=== PATIENT | male | born 1950 | race Caucasian/White ===

== ENCOUNTER 2024-01-30 08:45 | Emergency (ER) | payer MEDICARE, SELFPAY ==
[2024-01-30 09:01] VITALS: BP 134/52; PULSE 50; RESP 16; TEMP 36.6; O2SAT 98
--- NOTE | 2024-01-30 09:13 | ED.URI ---
HPI - URI/Sore Throat General Chief Complaint: Upper Respiratory Infection Stated Complaint: Strep Symptoms Time Seen by Provider: 01/30/24 09:24 Source: patient and RN notes reviewed Mode of arrival: ambulatory Limitations: no limitations History of Present Illness HPI Narrative: 73-year-old male presents with concern for exposure to strep throat earlier this week, he has then been having general malaise, nausea, vomiting, headache, body aches, chills, sweats. Reports his granddaughter had strep throat with similar symptoms. He has not taken any medications for his symptoms. MD elicited complaint: fever and other (Headache, nausea vomiting) Related Data Home Medications Medication Instructions Recorded Confirmed coenzyme Q10 75 mg capsule (Ultra 75 mg PO DAILY 02/09/23 01/30/24 CoQ10) Allergies Allergy/AdvReac Type Severity Reaction Status Date / Time amoxicillin [From Augmentin] AdvReac Intermediate Nausea and Verified 01/30/24 08:52 Vomiting clavulanic acid AdvReac Intermediate Nausea and Verified 01/30/24 08:52 Vomiting rosuvastatin [From Crestor] AdvReac Intermediate elevated CK Verified 01/30/24 08:52 cefuroxime AdvReac Mild flushing Verified 01/30/24 08:52 and redness pitavastatin sodium AdvReac Mild Nausea and Verified 01/30/24 08:52 Vomiting Review of Systems Review of Systems: CONSTITUTIONAL: Reports malaise, chills, sweats, or fever. EYES: Denies visual changes, redness, or discharge. ENT: Denies rhinorrhea, congestion, sinus pain, otalgia and sore throat. CARDIOVASCULAR: Denies chest pain, palpitations, or edema. RESPIRATORY: Denies cough. Denies dyspnea. GASTROINTESTINAL: Denies abdominal pain. Reports nausea, vomiting, diarrhea SKIN: Denies rash or itching. MUSCULOSKELETAL: Reports myalgia. NEUROLOGIC: Reports headache. All systems reviewed & are unremarkable except as noted in HPI and below PMFSH Past Medical History Medical History Adenocarcinoma of prostate Adverse effect of HMG-CoA reductase inhibitor BMI 29.0-29.9,adult BMI 30.0-30.9,adult BMI 31.0-31.9,adult Degenerative arthritis of knee, bilateral Dupuytren contracture Elevated creatine kinase Elevated prostate specific antigen (PSA) Essential (primary) hypertension GERD without esophagitis Hip pain Hypertension Left hip pain Mixed hyperlipidemia Posterior right knee pain Surgical History Surgical History Hx of biopsy Family History Family History Mother Family history of diabetes mellitus in first degree relative Father Family history of lung cancer Sibling Family history of malignant neoplasm of breast in first degree relative Malignant neoplasm of prostate Breast cancer Thyroid activity decreased Social History Social History Smoking status: Never smoker Second hand tobacco smoke exposure: No Alcohol intake: current Drinks per week: 1 Substance use: never Substance use type: does not use Do You Feel Safe in your Home?: Yes Lack of Transportation: No Lack of Food: Never True Current Housing: I Have Housing Concerned About Future Housing: No Difficulty Paying Gas/Electric Bills: No Difficulty Paying for Meds: No Currently Unemployed: No Education: Master's Degree or Higher Difficulty w/ Childcare or Family Care: No Living arrangements: with family Occupation/Education: occupation 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
== END 2024-01-30 09:36 | disposition home or self-care (01) ==
PROVIDERS: Emergency Provider Nurse Practitioner; PCP Family Medicine
DX: R11.2 Nausea with vomiting, unspecified (principal); Z20.818 Contact with and (suspected) exposure to other bacterial communicable diseases; Z20.822 Contact with and (suspected) exposure to COVID-19; M17.0 Bilateral primary osteoarthritis of knee; I10 Essential (primary) hypertension; K21.9 Gastro-esophageal reflux disease without esophagitis; E78.2 Mixed hyperlipidemia; Z85.46 Personal history of malignant neoplasm of prostate
CPT/HCPCS: 87081; 87426; 87804; 87880; 99213; G0463

== ENCOUNTER 2024-02-01 00:19 | Inpatient (IN) | payer MEDICARE, SELFPAY ==
[2024-02-01] VITALS (7 sets, daily range): BP systolic 141–169; BP diastolic 70–86; PULSE 50–83; RESP 16–18; TEMP 36.3–36.6; O2SAT 96–100; BMI 29.3
--- NOTE | ~2024-02-01 | XR_ITS ---
Upright portable view of the abdomen Clinical history: NG tube placement Findings: NG tube probably coiled back upon itself at the distal esophagus. Probable dilated small cielo wel loops noted in the upper abdomen. No free air evident. No abnormal mass lesion or calcification i s seen. Osseous structures are intact. Impression: Malpositioned NG tube, which is probably curled back upon itself at the distal esophagus. Removal/rep ositioning is required. Probable small bowel obstruction. Reviewed, dictated and finalized at location . Impression: Malpositioned NG tube, which is probably curled back upon itself at the distal esophagus. Removal/repositioning is required. Probable small bowel obstruction.
--- NOTE | ~2024-02-01 | CT_ITS ---
CT of the Abdomen and Pelvis: Indication: Abdominal pain Technique: 2.5 mm axial scans were obtained through the abdomen and pelvis following intravenous adm inistration of 100 cc of Omnipaque 350. Dose reduction technique was used on this scan by utilizing a utomated exposure control and iterative reconstruction technique. The dose-length product (DLP) was 7 38.44 mGy-cm. Findings: Scans through the lung bases demonstrate minimal bilateral pleural effusions. The liver, spleen, pancreas, adrenals and kidneys are within normal limits. Cholecystectomy clips are present. No evidence of aortic aneurysm. No lymphadenopathy. Multiple dilated proximal small bowel loops are present. Distal small bowel loops are relatively deco mpressed. Findings suggest at least partial small bowel obstruction. Images through the pelvis were performed. Urinary bladder unremarkable. Prostate gland enlarged. Smal l fat-containing inguinal hernia present. Trace pelvic ascites present. Impression: Findings most consistent with small bowel obstruction, as detailed above. Minimal pleural effusions and trace pelvic ascites. Enlarged prostate gland. Reviewed, dictated and finalized at location . Impression: Findings most consistent with small bowel obstruction, as detailed above. Minimal pleural effusions and trace pelvic ascites. Enlarged prostate gland.
--- NOTE | ~2024-02-01 | XR_ITS ---
EXAMINATION: XR sm bowel follow through DATE: 02/01/2024 11:16 INDICATION: Small bowel obstruction. TECHNIQUE: Oral contrast was administered, and a time course of radiographs of the abdomen was obtain ed. Fluoroscopy of the small bowel was at performed. Fluoroscopy exposure time was 0 minutes. The tot al number of images was 10. COMPARISON: CT abdomen and pelvis 02/01/2024 FINDINGS: Surgical clips in the right upper quadrant are likely from cholecystectomy. The nasogastric tube tip is in the stomach. There are multiple dilated loops of small bowel. Transit time from the stomach to proximal colon was approximately 2 hours. IMPRESSION: 1. Dilated small bowel with normal transit time to the colon, consistent with adynamic ileus versus p artial small bowel obstruction. Reviewed, dictated and finalized at location A. IMPRESSION: 1. Dilated small bowel with normal transit time to the colon, consistent with a dynamic ileus versus partial small bowel obstruction.
--- NOTE | ~2024-02-01 | XR_ITS ---
Clinical Indication: Body aches PA and lateral views of the chest: Comparison: 10/28/2012 Findings: Calcified right lower lobe granuloma present. The lungs are otherwise clear, without eviden ce of focal consolidation or pleural effusion. Cardiomediastinal silhouette is within normal limits. Bones and soft tissues are unremarkable. Impression: No significant abnormality. Reviewed, dictated and finalized at location . Impression: No significant abnormality.
--- NOTE | ~2024-02-01 | XR_ITS ---
Upright portable view of the abdomen Clinical history: NG tube placement Findings: NG tube is in satisfactory position. There is small bowel loops are compatible with small b owel obstruction. No free air seen. No abnormal mass lesion or calcification is seen. Osseous structu res are intact. Impression: NG tube in satisfactory position. Small bowel obstruction. Reviewed, dictated and finalized at location . Impression: NG tube in satisfactory position. Small bowel obstruction.
--- NOTE | 2024-02-01 00:52 | PC.NURSE ---
Pt unable to urinate at this time.
--- NOTE | 2024-02-01 01:39 | ED.ABDPAIN ---
HPI - Abdominal Pain General Chief Complaint: Abdominal Pain <KATYA Piedra Last Filed: 02/01/24 01:56> Stated Complaint: abd pain <KATYA Piedra Last Filed: 02/01/24 01:56> Time Seen by Provider: 02/01/24 01:14 <KATYA Piedra Last Filed: 02/01/24 01:56> History of Present Illness HPI narrative: 73-year-old male with a history of hypertension, hyperlipidemia presents to the emergency department for nausea, body aches, generalized fatigue for 4 days. Patient is reporting an upset stomach and epigastric abdominal pain. States at the onset of symptoms he had nausea and bilious emesis. He went to urgent care yesterday and was prescribed Zofran and penicillin because he was exposed to his granddaughter who was recently diagnosed with strep. The patient is denying a sore throat, chest pain or shortness of breath, cough or congestion, dysuria or hematuria. Prior abdominal surgeries include cholecystectomy. States he has been unable to keep down food and fluids secondary to nausea and emesis. <KATYA Piedra Last Filed: 02/01/24 01:56> Related Data Home Medications: Home Medications Medication Instructions Recorded Confirmed coenzyme Q10 75 mg capsule (Ultra 75 mg PO DAILY 02/09/23 01/30/24 CoQ10) <KATYA Piedra Last Filed: 02/01/24 01:56> Allergies/Adverse Reactions: Allergies Allergy/AdvReac Type Severity Reaction Status Date / Time amoxicillin [From Augmentin] AdvReac Intermediate Nausea and Verified 02/01/24 00:28 Vomiting clavulanic acid AdvReac Intermediate Nausea and Verified 02/01/24 00:28 Vomiting rosuvastatin [From Crestor] AdvReac Intermediate elevated CK Verified 02/01/24 00:28 cefuroxime AdvReac Mild flushing Verified 02/01/24 00:28 and redness pitavastatin sodium AdvReac Mild Nausea and Verified 02/01/24 00:28 Vomiting <KATYA Piedra Last Filed: 02/01/24 01:56> Review of Systems Review of Systems: CONSTITUTIONAL: Denies fever, chills, or sweats. EYES: Denies visual changes, redness, or discharge. ENT: Denies rhinorrhea, congestion, sore throat, or otalgia. CARDIOVASCULAR: Denies chest pain, palpitations, or edema. RESPIRATORY: Denies cough or dyspnea. GASTROINTESTINAL: See HPI GENITOURINARY: Denies dysuria or hematuria. SKIN: Denies rash or itching. MUSCULOSKELETAL: Denies back pain, joint pain, or myalgia. NEUROLOGIC: Denies headache, numbness, or weakness. PSYCHIATRIC: Denies anxiety or depression. <Alisha Case PA-C - Last Filed: 02/01/24 01:56> [facility] Past Medical History Medical History: Medical History Adenocarcinoma of prostate Adverse effect of HMG-CoA reductase inhibitor BMI 29.0-29.9,adult BMI 30.0-30.9,adult BMI 31.0-31.9,adult Degenerative arthritis of knee, bilateral Dupuytren contracture Elevated creatine kinase Elevated prostate specific antigen (PSA) Essential (primary) hypertension GERD without esophagitis Hip pain Hypertension Left hip pain Mixed hyperlipidemia Posterior right knee pain <Alisha Case PA-C - Last Filed: 02/01/24 01:56> Surgical History Surgical History: Surgical History Hx of biopsy <Alisha Case PA-C - Last Filed: 02/01/24 01:56> Family History Family History: Family History Mother Family history of diabetes mellitus in first degree relative Father Family history of lung cancer Sibling Family history of malignant neoplasm of breast in first degree relative Malignant neoplasm of prostate Breast cancer Thyroid activity decreased <Alisha Case PA-C - Last Filed: 02/01/24 01:56> Social History Social History: Social History
--- NOTE | 2024-02-01 01:42 | ECG_ITS ---
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 Measurements Intervals [place] Rate: 70 P: 14 FL: 157 QRS: -14 QRSD: 102 T: 18 QT: 429 QTc: 465 Interpretive Statements SINUS RHYTHM NORMAL ELECTROCARDIOGRAM No previous ECG available for comparison Electronically Signed On 02-01-2024 14:45:51 CDT by Kalpesh Maria M.D.
[2024-02-01] MEDS: SODIUM CHLORIDE 0.9% IV 1,000 ML 999 ML IV CONT ×2 (02:00→03:35)
[2024-02-01 03:00] LABS: Basophils Percent Auto 0.5 % (0.2-1.2); Eosinophils Absolute Auto 0.1 K/mm3 (0-0.3); Eosinophils Percent Auto 1.1 % (0-4.4); Hematocrit 46.9 % (42.0-52.0); Hemoglobin 15.8 g/dL (14.0-18.0); Immature Granulocyte Absolute 0.01 K/mm3 (0.00-0.031); Immature Granulocyte Percent A 0.2 % (0-0.5); Immature Platelet Fraction Pct 4.6 % (0.9-11.2); Lymphocytes Absolute Auto 1.53 K/mm3 (0.9-3.2); Lymphocytes Percent Auto 23.4 % (18.3-44.2); Mean Corpuscular HGB Conc 33.7 g/dl (32-36); Mean Corpuscular Hemoglobin 29.3 pg (26-34); Mean Corpuscular Volume 86.9 fl (80-100); Mean Platelet Volume 10.7 fl (7.4-10.4); Monocytes Absolute Auto 0.8 K/mm3 (0.1-0.6); Monocytes Percent Auto 11.6 % (2.6-8.5); Neutrophils Absolute Auto 4.1 K/mm3 (1.3-6.7); Neutrophils Percent Auto 63.2 % (45.5-73.1); Platelet Count Result 136 k/mm3 (150-375); Red Cell Distribution Width 13.9 % (11.5-14.5); White Blood Count 6.5 K/mm3 (4.5-10.0)
[2024-02-01 03:07] LABS: Lactic Acid Reflex 0.7 mmol/L (0.7-2.0)
[2024-02-01 03:25] LABS: Appearance Urine Clear (Clear); Bacteria Urine None Seen /hpf; Bilirubin Urine Negative (Negative); Blood Urine 1+ (Negative); Color Urine Yellow (Yellow); Glucose Urine UA Negative (Negative); Ketones Urine 1+ mg/dL (Negative); Leukocyte Esterase Ur Negative LEU/UL (Negative); Nitrate Urine Negative (Negative); Protein Urine Trace mg/dL (Negative); RBC Urine 0-2 /hpf (0-2); Specific Grav Ur 1.021 (1.001-1.035); Squamous Epithelial Cell Urine None Seen /hpf (Few); Urobilinogen Urine 0.2 mg/dL (<2.0); WBC Urine 0-5 /hpf (0-3)
[2024-02-01 03:25] LABS: Alanine Aminotransferase 33 U/L (6-50); Albumin Level 4.5 g/dL (3.5-5.1); Alkaline Phosphatase 60 U/L (38-126); Anion Gap 10 mmol/L (4-12); Aspartate Amino Transferase 36 U/L (17-59); Bilirubin,Total 0.8 mg/dL (0.2-1.3); Blood Urea Nitrogen 20 mg/dL (9-20); Calcium 8.8 mg/dL (8.4-10.2); Carbon Dioxide 23 mmol/L (22-30); Chloride 105 mmol/L (98-107); Creatine Kinase 375 U/L (55-170); Estimated CRCL calculation 49 ml/min; Estimated Glomerular Filt Rate 54; Glucose 91 mg/dL (65-110); Lipase 56 U/L (23-300); Potassium 3.9 mmol/L (3.4-5.0); Sodium 138 mmol/L (137-145)
[2024-02-01 03:26] LABS: Add Urine Microscopic? YES
[2024-02-01] MEDS: ONDANSETRON INJ 4 MG/2 ML VIAL (03:35)
[2024-02-01] MEDS: PANTOPRAZOLE SODIUM IV 40 MG VIAL IV PUSH (03:35)
[2024-02-01 03:36] LABS: Troponin I < 0.012 ng/mL (0.000-0.034)
--- NOTE | 2024-02-01 03:36 | PC.NURSE ---
medications administered during downtime.
--- NOTE | 2024-02-01 04:45 | PC.NURSE ---
Assumed care of pt at this time.
[2024-02-01] MEDS: SODIUM CHLORIDE 0.9% IV 1,000 ML 100 ML IV CONT (06:48)
[2024-02-01] MEDS: ERTAPENEM 1 GM/NS 50 ML 1 GM/50 ML BAG IVPB (06:49)
--- NOTE | 2024-02-01 07:29 | ADMGEN ---
This patient, Boom Mckeon, was admitted to 2 Medical Room 240-. Patient/family oriented to hospital policies and general routines including ID bracelet, bed and alarms, visiting hours, pain management, procedures, bathroom and other care routines, personal items, smoking policy, room service/diet, and visiting hours. Information on how to activate the Rapid Response Team has been discussed. Patient/Family are encouraged to report perceived risks to care and to ask questions if they do not understand what they are told or what they should do.
--- NOTE | 2024-02-01 07:57 | PM.IMHP ---
H&P: HPI History of Present Illness Date/Time: 02/01/24 07:57 Chief Complaint: abdominal pain Narrative: 73 yo gentleman with history of hypertension hyperlipidemia, cholecystectomy present ED with chief complaint of abdomen pain, nausea. Patient started have nausea abdomen pain about 4 days ago, patient has epigastric pain, and patient has intermittent nausea bilious vomiting. Patient denies black emesis, black stools. Patient went to urgent care yesterday and prescribed Zofran penicillin. Patient came back ED because of worsening abdomen pain nausea vomiting. Patient denied sore throat, chest pain or shortness of breath, cough or congestion, dysuria or hematuria. upon arrival to ED, patient was afebrile, blood pressure stable, pulse ox 98 on room air, labs are unremarkable, CT abdomen pelvis showed small-bowel obstruction, minimal pleural effusion and trace pelvic ascites, enlarged prostate gland Review of Systems Review of Systems: ROS negative except above PMFSH Past Medical History Medical History Adenocarcinoma of prostate Adverse effect of HMG-CoA reductase inhibitor Degenerative arthritis of knee, bilateral Dupuytren contracture Elevated creatine kinase Elevated prostate specific antigen (PSA) Essential (primary) hypertension GERD without esophagitis Hip pain Hypertension Left hip pain Mixed hyperlipidemia Posterior right knee pain Surgical History Surgical History History of laparoscopic cholecystectomy Hx of biopsy Family History Family History Mother Family history of diabetes mellitus in first degree relative Father Family history of lung cancer Sibling Family history of malignant neoplasm of breast in first degree relative Malignant neoplasm of prostate Breast cancer Thyroid activity decreased Social History Social History Smoking status: Never smoker Second hand tobacco smoke exposure: No Alcohol intake: current Drinks per week: 1 Substance use: never Substance use type: does not use Do You Feel Safe in your Home?: Yes Lack of Transportation: No Lack of Food: Never True Current Housing: I Have Housing Concerned About Future Housing: No Difficulty Paying Gas/Electric Bills: No Difficulty Paying for Meds: No Currently Unemployed: No Education: Master's Degree or Higher Difficulty w/ Childcare or Family Care: No Living arrangements: with family Occupation/Education: occupation 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 Gender identity (if verbalized by the patient): Male Sexual Orientation (if Verbalized by the Patient): Straight or Heterosexual Spiritual care concerns: No Agree to blood products: Yes Meds Home Medications and Allergies Home Medications Medication Instructions Recorded Confirmed Type coenzyme Q10 75 mg capsule (Ultra 75 mg PO DAILY 02/09/23 02/01/24 History CoQ10) doxazosin 4 mg tablet 4 mg PO DAILY #90 tabs 11/11/23 02/01/24 Rx tadalafil 5 mg tablet 5 mg PO DAILY #30 tabs 11/22/23 02/01/24 Rx famotidine 40 mg tablet 40 mg PO QHS #90 tabs 11/29/23 02/01/24 Rx lisinopril 20 mg tablet See Rx Instructions .Route 01/10/24 02/01/24 Rx .COMPLEX #90 tabs ondansetron 4 mg disintegrating 4 mg PO Q8H PRN nausea and 01/30/24 02/01/24 Rx tablet vomiting #10 tabs Allergies Allergy/AdvReac Type Severity Reaction Status Date / Time amoxicillin [From Augmentin] AdvReac Intermediate Nausea and Verified 02/01/24 00:28 Vomiting clavulanic acid AdvReac Intermediate Nausea and Verified 02/01/24 00:28 Vomiting rosuvastatin [From Crestor] AdvReac Intermediate elevated CK Verified 02/01/24 00:28 cefuroxime AdvReac Mild flushing Verified 02/01/24 00:28 and
[2024-02-01] MEDS: DEXTROSE 5%/LACTATED RINGERS 1,000 ML 100 ML IV CONT ×2 (08:22→18:46)
[2024-02-01] MEDS: ENOXAPARIN 40 MG/0.4 ML SYRINGE SUB-Q (08:23)
--- NOTE | 2024-02-01 11:32 | PM.CNGS ---
Assessment and Plan Assessment and plan (1) Small bowel obstruction: Code(s): K56.609 - Unspecified intestinal obstruction, unspecified as to partial versus complete obstruction Status: Acute Assessment and Plan: CT evidence of a small bowel obstruction. WBC and lactic acid are normal. NG tube is now in place after repositioning. His only surgical history is a laparoscopic cholecystectomy, which you would not expect him to have extensive intraabdominal adhesions from this surgery. There are no diffuse peritoneal signs on exam, and he reports having diarrhea since yesterday. His presentation and exam are not consistent with a high-grade small bowel obstruction. We have ordered a water-soluble small bowel follow through to further evaluate. If there is no small bowel obstruction, then we can remove his NG tube and start him on a liquid diet. Will continue to follow. (2) Essential (primary) hypertension: Code(s): I10 - Essential (primary) hypertension Status: Acute (3) Adenocarcinoma of prostate: Code(s): C61 - Malignant neoplasm of prostate Status: Acute Assessment and Plan: Low-grade and under surveillance by Urology. Plan I have discussed the patient's case and plan of care with Dr. Larkin. History of Present Illness Consult details Consult date: 02/01/24 Reason for consult: other (Small bowel obstruction) Requesting physician: Shyann Sanders MD Narrative: This is a 73-year-old man with a history of hypertension, hyperlipidemia, GERD, and prostate cancer under surveillance, who presented to the emergency department with complaints of abdominal pain and vomiting. His only history of abdominal surgery is a laparoscopic cholecystectomy. He reports having generalized malaise, body aches, bloating, and cramping abdominal pain starting 3 days ago after eating pulled pork Sliders for dinner. His symptoms continued into the next day. He reports a sudden onset of nausea with 4 episodes of vomiting within about an hour time frame. Around this time, he also reports having a very large bowel movement. After this, his nausea improved, but he continued to have bloating, abdominal distention, and cramping abdominal pain. Yesterday, his abdominal pain continued to get worse and would come in waves. He had no more vomiting, and reports more than 10 episodes of diarrhea. Throughout the day, he began to notice that his abdomen was tender and he decided to come into the ER for evaluation. Labs showed a normal white blood cell count of 6500. Lactic acid 0.7. CT scan of the abdomen and pelvis showed evidence of a small-bowel obstruction. He was admitted in the setting. Our service was consulted for surgical evaluation of the small-bowel obstruction. NG tube has been placed and is currently clamped for a small-bowel follow-through that was started this morning. He reports having 1 liquid bowel movement earlier this morning. He does report passing flatus and feels there is some liquid stool that passes with flatus. Denies a history of a small-bowel obstruction. He does report over the past month having changes in his bowel habits. He has had intermittent constipation, but denies blood in his stool. He has had multiple colonoscopies last done about 5 years ago that was reportedly unremarkable. Review of Systems Review of Systems: All systems reviewed & are unremarkable except as noted in HPI and below PMFSH Past Medical History Medical History Adenocarcinoma of prostate Adverse effect of HMG-CoA reductase inhibitor Degenerative arthritis of knee, bilateral Dupuytren contracture Elevated creatine kinase Elevated prostate specific antigen (PSA) Essential (primary) hypertension GERD without esophagitis Hip pain Hypertension Left hip pain Mixed hyperlipidemia Posterior right knee pain Surgical History Surgical History (Reviewed 02/01/24 @ 11:39 by
[2024-02-02 04:22] VITALS: BP 146/74; PULSE 63; RESP 18; TEMP 36.4; O2SAT 99
[2024-02-02] MEDS: DEXTROSE 5%/LACTATED RINGERS 1,000 ML 100 ML IV CONT (04:45)
[2024-02-02] MEDS: ERTAPENEM 1 GM/NS 50 ML 1 GM/50 ML BAG IVPB (05:00)
--- NOTE | 2024-02-02 07:45 | PM.IMPN ---
Progress Note: A&P Assessment and Plan (1) Small bowel obstruction: Code(s): K56.609 - Unspecified intestinal obstruction, unspecified as to partial versus complete obstruction Status: Acute (2) Essential (primary) hypertension: Code(s): I10 - Essential (primary) hypertension Status: Acute (3) Mixed hyperlipidemia: Code(s): E78.2 - Mixed hyperlipidemia Status: Acute (4) BPH (benign prostatic hyperplasia): Qualifiers: Lower urinary tract symptom presence: symptoms absent Qualified Code(s): N40.0 - Benign prostatic hyperplasia without lower urinary tract symptoms Code(s): N40.0 - Benign prostatic hyperplasia without lower urinary tract symptoms Status: Acute (5) Adenocarcinoma of prostate: Code(s): C61 - Malignant neoplasm of prostate Status: Acute Plan small-bowel obstruction Patient has been having abdomen pain nausea vomiting in past 4 days, CT scan shows small bowel obstruction, patient has history of cholecystostomy Keep patient p.o., place NG tube, intermittent suction Start fluid resuscitation WITH D5 LACTATED RINGER'S 100 ML/HOUR Optimize pain management Consult general surgeon for evaluation treatment from CBC CMP, replete electrolyte abnormality accordingly 02/01: small-bowel obstruction has resolved, patient is afebrile, blood pressure stable, tolerated diet well uncontrolled hypertension Likely secondary to uncontrolled hold oral medication Start hydralazine IV p.r.n. with parameters resume home medication at discharge GERD Hold famotidine Start Protonix 40 mg IV once and daily resume home medication at discharge fasting glucose 375 f/u A1C, 5.3 f/u with PCP resume rest home medications on discharge Subjective Date/time seen: 02/02/24 07:45 Interval history: Patient tolerated regular diet well, denies abdomen pain, nausea vomiting diarrhea. Patient is afebrile, blood pressure stable no O2 desaturation Exam Narrative: GENERAL: Pleasant, in no acute distress. Well-nourished. - EYES: EOMI. Anicteric. - HENT: Moist mucous membranes. - LUNGS: Clear to auscultation bilaterally, no wheezing, rhonchi, or rales. - CARDIOVASCULAR: Regular rate and rhythm. No murmur. No JVD. - ABDOMEN: Soft, non-tender and non-distended. No palpable masses. - EXTREMITIES: No edema. Peripheral pulses 2+. Non-tender. - NEUROLOGIC: No focal neurological deficits. CN II-XII grossly intact. - PSYCHIATRIC: Awake, Alert and oriented x 3. Appropriate mood and affect. - SKIN: No rashes or lesions. Warm. - LYMPH: No cervical lymphadenopathy. Objective Data Vital Signs Vital Signs: Vital Signs - 24 hr 02/01/24 07:55 02/01/24 08:20 02/01/24 17:07 Temperature 97.4 F L Pulse Rate 66 83 Respiratory Rate 18 18 Blood Pressure 166/76 H 169/71 H Pulse Oximetry 99 96 Oxygen Delivery Room Air 02/01/24 19:33 02/01/24 19:44 02/02/24 04:22 Temperature 97.9 F 97.6 F Pulse Rate 72 63 Respiratory Rate 17 18 Blood Pressure 145/78 H 146/74 H Pulse Oximetry 99 99 Oxygen Delivery Room Air Intake/Output Intake/Output: Intake & Output 01/30/24 01/31/24 02/01/24 02/02/24 23:59 23:59 23:59 23:59 Intake Total 3490 1131.7 Balance 3490 1131.7 Meds/Results Medications: Active Medications Generic Name Dose Route Start Last Admin Trade Name Freq PRN Reason Stop Dose Admin Enoxaparin Sodium 40 mg 02/01/24 09:00 02/01/24 08:23 Enoxaparin 40 Mg/0.4 Ml Syringe SUB-Q 40 mg DAILY LIS Administration Ertapenem 1 gm in 50 mls @ 100 mls/hr 02/01/24 06:00 02/02/24 05:30 Invanz 1 Gm/Ns 50 Ml IVPB Infused Q24H LIS Infusion Dextrose/Lactated Ringer's 1,000 mls @ 100 mls/hr 02/01/24 08:10 02/02/24 05:30 Dextrose 5%/Lactated Ringers IV CONT 100 mls/hr .Q10H LIS Infusion Radiology Results: ITS Impressions Chest X-Ray 02/01/24 05:52 Impression: No signifi
[2024-02-02 08:09] LABS: Estimated CRCL calculation 46 ml/min; Estimated Glomerular Filt Rate 50
[2024-02-02 08:55] VITALS: O2SAT 98
[2024-02-02 09:00] LABS: Hemoglobin A1C 5.3 % (<5.7)
--- NOTE | 2024-02-02 10:01 | PM.PNGS ---
Progress Note: A&P Assessment and Plan (1) Small bowel obstruction: Code(s): K56.609 - Unspecified intestinal obstruction, unspecified as to partial versus complete obstruction Status: Acute Assessment and Plan: Resolved. Small-bowel follow-through showed normal transit of oral contrast to the colon with no obstruction. NG tube removed and diet being advanced. If he is able to tolerate a regular diet today, then he is stable for discharge from a surgical standpoint. No follow-up needed. Plan I have discussed the patient's case and plan of care with Dr. Larkin. Subjective Subjective Date/Time Seen: 02/02/24 09:01 Patient reports: no new complaints, feels better, tolerating liquids well, flatus and bowel movement Interval history: Patient feeling better today. He denies any abdominal pain, nausea, or vomiting. His bloating is better. He had full liquids for dinner last night and tolerated this well. He is waiting to have breakfast this morning. He has had multiple liquid bowel movement since receiving oral contrast yesterday. Exam GI: Inspection: non-distended GI Palp: Yes Soft to palpation, No Tenderness to palpation present (GI), No Guarding due to palpation present (GI) and No Rebound tenderness present Auscultation: normal bowel sounds Objective Data Vital Signs Vital Signs: Vital Signs - 24 hr 02/01/24 17:07 02/01/24 19:33 02/01/24 19:44 Temperature 97.4 F L 97.9 F Pulse Rate 83 72 Respiratory Rate 18 17 Blood Pressure 169/71 H 145/78 H Pulse Oximetry 96 99 Oxygen Delivery Room Air Fraction of Inspired Oxygen 02/02/24 04:22 02/02/24 08:55 Temperature 97.6 F Pulse Rate 63 Respiratory Rate 18 Blood Pressure 146/74 H Pulse Oximetry 99 98 Oxygen Delivery Room Air Fraction of Inspired Oxygen 21 Intake/Output Intake/Output: Intake & Output 01/30/24 01/31/24 02/01/24 02/02/24 23:59 23:59 23:59 23:59 Intake Total 3490 1131.7 Balance 3490 1131.7 Meds/Results Medications: Active Medications Generic Name Dose Route Start Last Admin Trade Name Freq PRN Reason Stop Dose Admin Enoxaparin Sodium 40 mg 02/01/24 09:00 02/02/24 10:00 Enoxaparin 40 Mg/0.4 Ml Syringe SUB-Q Not Given DAILY LIS Radiology Results: ITS Impressions Chest X-Ray 02/01/24 05:52 Impression: No significant abnormality. Abdomen/Pelvis CT 02/01/24 05:58 Impression: Findings most consistent with small bowel obstruction, as detailed above. Minimal pleural effusions and trace pelvic ascites. Enlarged prostate gland. Abdomen X-Ray 02/01/24 07:28 Impression: NG tube in satisfactory position. Small bowel obstruction. Small Bowel X-Ray 02/01/24 12:04 IMPRESSION: 1. Dilated small bowel with normal transit time to the colon, consistent with adynamic ileus versus partial small bowel obstruction. Labs Labs: Laboratory Results - last 24 hr 02/01/24 02/02/24 01:10 08:05 Creatinine 1.40 Estim Creat Clear Calc 46 Estimated GFR 50 L Hemoglobin A1c 5.3
[2024-02-02 14:00] VITALS: BP 142/72; PULSE 64; RESP 18; TEMP 36.4; O2SAT 98
--- NOTE | 2024-02-02 14:18 | PM.DS ---
DS: Admitting Diagnosis Discharge Date 02/01 Admitting Diagnosis small-bowel obstruction DS: Discharge Diagnosis Discharge Diagnosis (1) Small bowel obstruction: Code(s): K56.609 - Unspecified intestinal obstruction, unspecified as to partial versus complete obstruction Status: Acute (2) Essential (primary) hypertension: Code(s): I10 - Essential (primary) hypertension Status: Acute (3) Mixed hyperlipidemia: Code(s): E78.2 - Mixed hyperlipidemia Status: Acute (4) BPH (benign prostatic hyperplasia): Qualifiers: Lower urinary tract symptom presence: symptoms absent Qualified Code(s): N40.0 - Benign prostatic hyperplasia without lower urinary tract symptoms Code(s): N40.0 - Benign prostatic hyperplasia without lower urinary tract symptoms Status: Acute (5) Adenocarcinoma of prostate: Code(s): C61 - Malignant neoplasm of prostate Status: Acute DS: Summary Hospital Course Hospital Course: 73 yo gentleman with history of hypertension hyperlipidemia, cholecystectomy present ED with chief complaint of abdomen pain, nausea. Patient started have nausea abdomen pain about 4 days ago, patient has epigastric pain, and patient has intermittent nausea bilious vomiting. Patient denies black emesis, black stools. Patient went to urgent care yesterday and prescribed Zofran penicillin. Patient came back ED because of worsening abdomen pain nausea vomiting. Patient denied sore throat, chest pain or shortness of breath, cough or congestion, dysuria or hematuria. upon arrival to ED, patient was afebrile, blood pressure stable, pulse ox 98 on room air, labs are unremarkable, CT abdomen pelvis showed small-bowel obstruction, minimal pleural effusion and trace pelvic ascites, enlarged prostate gland small-bowel obstruction Patient has been having abdomen pain nausea vomiting in past 4 days, CT scan shows small bowel obstruction, patient has history of cholecystostomy Keep patient p.o., place NG tube, intermittent suction Start fluid resuscitation WITH D5 LACTATED RINGER'S 100 ML/HOUR Optimize pain management Consult general surgeon for evaluation treatment from CBC CMP, replete electrolyte abnormality accordingly 02/01: small-bowel obstruction has resolved, patient is afebrile, blood pressure stable, tolerated diet well uncontrolled hypertension Likely secondary to uncontrolled hold oral medication Start hydralazine IV p.r.n. with parameters resume home medication at discharge GERD Hold famotidine Start Protonix 40 mg IV once and daily resume home medication at discharge fasting glucose 375 f/u A1C, 5.3 f/u with PCP resume rest home medications on discharge Time Spent with Patient Time attestation: Total time spent providing and/or coordinating discharge services: Exam Narrative: GENERAL: Pleasant, in no acute distress. Well-nourished. - EYES: EOMI. Anicteric. - HENT: Moist mucous membranes. - LUNGS: Clear to auscultation bilaterally, no wheezing, rhonchi, or rales. - CARDIOVASCULAR: Regular rate and rhythm. No murmur. No JVD. - ABDOMEN: Soft, non-tender and non-distended. No palpable masses. - EXTREMITIES: No edema. Peripheral pulses 2+. Non-tender. - NEUROLOGIC: No focal neurological deficits. CN II-XII grossly intact. - PSYCHIATRIC: Awake, Alert and oriented x 3. Appropriate mood and affect. - SKIN: No rashes or lesions. Warm. - LYMPH: No cervical lymphadenopathy. DS: Data Data Completed and Pending Labs on day of discharge: Labs from last 24 hours 02/02/24 02/01/24 08:05 01:10 Creatinine 1.40 Estim Creat Clear Calc 46 Estimated GFR 50 L Hemoglobin A1c 5.3 Discharge Plan Discharge Attending physician on discharge: Yuri Moses Consulting providers: Harsha Larkin; Alisha Case Discharging Clinician: Yuri Moses Anticipated Discharge Date/Time: 02/02/24 14:21 Patient
== END 2024-02-02 15:45 | disposition home or self-care (01) | DRG 390 ==
LOC: ANHED 06:47 → ANH2MED 06:51
PROVIDERS: Admitting Provider Internal Medicine; Emergency Provider Emergency Medicine; PCP Family Medicine; Visit Provider Hospitalist
DX: K56.609 Unspecified intestinal obstruction, unspecified as to partial versus complete obstruction (principal); I10 Essential (primary) hypertension; E78.5 Hyperlipidemia, unspecified; E78.2 Mixed hyperlipidemia; C61 Malignant neoplasm of prostate; K21.9 Gastro-esophageal reflux disease without esophagitis; M17.0 Bilateral primary osteoarthritis of knee; M72.0 Palmar fascial fibromatosis [Dupuytren]
CPT/HCPCS: 36415; 71046; 74177; 74250; 80053; 81001; 82550; 83036; 83605; 83690; 84484; 85025; 85055; 93005; 96361; 96374; 96375; 99285; C9113; J1335; J1650; J2405; J7030; J7121; Q9967

== ENCOUNTER 2024-05-01 08:07 | Observation (INO) | payer MEDICARE, SELFPAY ==
[2024-05-01] VITALS (16 sets, daily range): BP systolic 120–157; BP diastolic 66–81; PULSE 59–90; RESP 13–23; TEMP 35.9–36.8; O2SAT 96–100; BMI 30.8
--- NOTE | ~2024-05-01 | XR_ITS ---
Clinical Indication: Chest pain PA and lateral views of the chest: Comparison: 02/01/2024 Findings: Stable calcified right basilar granuloma. The lungs are otherwise clear, without evidence o f focal consolidation or pleural effusion. Cardiomediastinal silhouette is within normal limits. Bon es and soft tissues are unremarkable. Impression: No acute abnormality. Reviewed, dictated and finalized at location . Impression: No acute abnormality.
--- NOTE | 2024-05-01 08:10 | ECG_ITS ---
Test Date: 2024-05-01 08:14:01 Measurements Intervals [place] Rate: 94 P: 34 GA: 147 QRS: 71 QRSD: 97 T: 26 QT: 341 QTc: 427 Interpretive Statements SINUS RHYTHM WITH OCCASIONAL VENTRICULAR PREMATURE COMPLEXES BORDERLINE ST-T WAVE ABNORMALITY- INFERIOR LEADS BASELINE ARTIFACT- I, II, III, AVR, AVL, AVF, V4-V6 BORDERLINE ECG Compared to ECG 02/01/2024 03:08:01 NO SIGNIFICANT CHANGE Electronically Signed On 05-01-2024 11:07:57 CDT by Scotty Ramirez D.O.
[2024-05-01] MEDS: ASPIRIN 81 MG CHEWABLE TABLET 324 MG PO (08:21)
--- NOTE | 2024-05-01 08:23 | ED.CHESTPAIN ---
HPI - Chest Pain General Chief Complaint: Chest Pain Stated Complaint: left back, shoulder, chest pain Time Seen by Provider: 05/01/24 08:23 Source: patient and family Mode of arrival: ambulatory Limitations: no limitations History of Present Illness HPI narrative: 74 years old white male came to the ED complaining of left upper back, left chest and left shoulder pain was trying to push garage door up. Symptoms lasted for 30 minutes then resolved. He denies any shortness of breath. History of hypertension, hyperlipidemia, prostatic cancer. Related Data Home Medications Medication Instructions Recorded Confirmed coenzyme Q10 75 mg capsule (Ultra 75 mg PO DAILY 02/09/23 02/01/24 CoQ10) Allergies Allergy/AdvReac Type Severity Reaction Status Date / Time amoxicillin [From Augmentin] AdvReac Intermediate Nausea and Verified 05/01/24 08:19 Vomiting clavulanic acid AdvReac Intermediate Nausea and Verified 05/01/24 08:19 Vomiting rosuvastatin [From Crestor] AdvReac Intermediate elevated CK Verified 05/01/24 08:19 cefuroxime AdvReac Mild flushing Verified 05/01/24 08:19 and redness pitavastatin sodium AdvReac Mild Nausea and Verified 05/01/24 08:19 Vomiting Review of Systems Review of Systems: All systems reviewed & are unremarkable except as noted in HPI and below PMFSH Past Medical History Medical History Adenocarcinoma of prostate Adverse effect of HMG-CoA reductase inhibitor Degenerative arthritis of knee, bilateral Dupuytren contracture Elevated creatine kinase Elevated prostate specific antigen (PSA) Essential (primary) hypertension GERD without esophagitis Hip pain Hypertension Left hip pain Mixed hyperlipidemia Posterior right knee pain Surgical History Surgical History History of laparoscopic cholecystectomy Hx of biopsy Family History Family History Mother Family history of diabetes mellitus in first degree relative Father Family history of lung cancer Sibling Family history of malignant neoplasm of breast in first degree relative Malignant neoplasm of prostate Breast cancer Thyroid activity decreased Social History Social History Smoking status: Never smoker Second hand tobacco smoke exposure: No Alcohol intake: current Drinks per week: 1 Substance use: never Substance use type: does not use Do You Feel Safe in your Home?: Yes Lack of Transportation: No Lack of Food: Never True Current Housing: I Have Housing Concerned About Future Housing: No Difficulty Paying Gas/Electric Bills: No Difficulty Paying for Meds: No Currently Unemployed: No Education: Master's Degree or Higher Difficulty w/ Childcare or Family Care: No Living arrangements: with family Occupation/Education: occupation 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 Gender identity (if verbalized by the patient): Male Sexual Orientation (if Verbalized by the Patient): Straight or Heterosexual Spiritual care concerns: No Agree to blood products: Yes Exam Narrative: General appearance: Well-developed, well-nourished Skin: Normal color Head: Normocephalic, nontraumatic Eyes: Clear conjunctiva ENT: Oropharynx normal, ears normal, nose normal Neck: Supple, nontender Chest and respiratory: Airway patent, no respiratory distress, no accessory muscle use Heart: Regular rate/rhythm Abdomen: Soft, nontender, no organomegaly, quiet bowel sounds Vascular: Normal peripheral pulses, normal capillary refill. 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
[2024-05-01 08:26] LABS: Basophils Percent Auto 0.5 % (0.2-1.2); Eosinophils Absolute Auto 0.1 K/mm3 (0-0.3); Eosinophils Percent Auto 1.7 % (0-4.4); Hematocrit 43.2 % (42.0-52.0); Hemoglobin 14.4 g/dL (14.0-18.0); Immature Granulocyte Absolute 0.01 K/mm3 (0.00-0.031); Immature Granulocyte Percent A 0.2 % (0-0.5); Immature Platelet Fraction Pct 2.3 % (0.9-11.2); Lymphocytes Absolute Auto 1.85 K/mm3 (0.9-3.2); Lymphocytes Percent Auto 29.3 % (18.3-44.2); Mean Corpuscular HGB Conc 33.3 g/dl (32-36); Mean Corpuscular Hemoglobin 29.6 pg (26-34); Mean Corpuscular Volume 88.9 fl (80-100); Mean Platelet Volume 9.5 fl (7.4-10.4); Monocytes Absolute Auto 0.4 K/mm3 (0.1-0.6); Monocytes Percent Auto 5.5 % (2.6-8.5); Neutrophils Percent Auto 62.8 % (45.5-73.1); Platelet Count Result 127 k/mm3 (150-375); Red Blood Count 4.86 M/mm3 (4.6-6.20); White Blood Count 6.3 K/mm3 (4.5-10.0)
[2024-05-01 08:37] LABS: Alanine Aminotransferase 21 U/L (6-50); Alkaline Phosphatase 67 U/L (38-126); Anion Gap 10 mmol/L (4-12); Aspartate Amino Transferase 22 U/L (17-59); Bilirubin,Total 0.7 mg/dL (0.2-1.3); Blood Urea Nitrogen 16 mg/dL (9-20); Calcium 8.7 mg/dL (8.4-10.2); Carbon Dioxide 28 mmol/L (22-30); Chloride 103 mmol/L (98-107); Estimated CRCL calculation 55 ml/min; Estimated Glomerular Filt Rate > 60; Glucose 121 mg/dL (65-110); Lipase 86 U/L (23-300); Potassium 3.8 mmol/L (3.4-5.0); Sodium 141 mmol/L (137-145)
[2024-05-01 08:38] LABS: Prothrombin Time 13.6 Seconds (11.1-14.7)
[2024-05-01 08:40] LABS: Partial Thromboplastin Time 27.7 Seconds (22.3-36.8)
[2024-05-01 08:50] LABS: Troponin I < 0.012 ng/mL (0.000-0.034)
--- NOTE | 2024-05-01 11:06 | ECG_ITS ---
Test Date: 2024-05-01 11:09:55 Measurements Intervals [place] Rate: 63 P: 30 ME: 160 QRS: -14 QRSD: 101 T: 17 QT: 391 QTc: 402 Interpretive Statements SINUS RHYTHM WITH SINUS ARRHYTHMIA LEFT VENTRICULAR HYPERTROPHY CONSIDER INFERIOR INFARCT, AGE INDETERMINATE BASELINE ARTIFACT- I, II, III, AVR, AVL, AVF, V1-V2, V4-V6 ABNORMAL ECG Compared to ECG 05/01/2024 08:14:01 NO SIGNIFICANT CHANGE Electronically Signed On 05-01-2024 11:16:15 CDT by Scotty Ramirez D.O.
[2024-05-01 11:42] LABS: Troponin I < 0.012 ng/mL (0.000-0.034)
--- NOTE | 2024-05-01 13:00 | PM.IMHP ---
H&P: HPI History of Present Illness Date/Time: 05/01/24 13:00 Chief Complaint: Chest pain. Narrative: This is a very pleasant 74-year-old male with hypertension, hyperlipidemia, mildly reduced ejection fraction on cardiac cath in October 2012, benign prostatic hyperplasia, occasional GERD, and prostate cancer undergoing surveillance who presented to the emergency department for evaluation of chest pain. The patient provides the following history. He felt fine when he got up this morning. He when out to the garage and lifted up 1 of the garage doors which is manual. About the same time he developed a pain in the left scapula radiating to the left chest and shoulder/arm. He is unable to really qualify the pain but he does say that it was not severe. There were no other associated symptoms and he specifically denies lightheadedness, dizziness, sweats, nausea, and shortness of breath. It continued for approximately 30 minutes before he came to the ED and resolved after he chewed 4 baby aspirins and it has not returned. He did not have difficulties lifting the garage door and does not feel as though this is a muscle strain. He has had occasional GERD symptoms which radiate up into the chest however this felt very different. He is an active gentleman and has not had exertional chest pain. In the ED: Vital signs were stable on arrival. EKG showed borderline ST T-wave abnormalities in inferior leads. Initial troponin was normal. The remainder of his labs were pretty unremarkable though platelet count was slightly low 127. Chest x-ray was without acute findings. He was given aspirin 324 mg and is being admitted in this setting for close monitoring. Review of Systems Review of Systems: 12 systems were reviewed and are negative except for as per HPI. [facility] Past Medical History Medical History (Updated 05/01/24 @ 23:26 by Natty Nair PA-C) Adenocarcinoma of prostate Under active surveillance. Benign prostatic hyperplasia Degenerative arthritis of knee, bilateral Essential (primary) hypertension GERD without esophagitis Hypertension Mixed hyperlipidemia Surgical History Surgical History History of cardiac catheterization (10/2012) No significant obstructive coronary artery disease. LVEF 40 to 45% with moderate diffuse hypokinesis. History of laparoscopic cholecystectomy Family History Family History Mother Family history of diabetes mellitus in first degree relative Father Family history of lung cancer Sibling Family history of malignant neoplasm of breast in first degree relative Malignant neoplasm of prostate Breast cancer Thyroid activity decreased Social History Social History Social History: Surrogate medical decision maker: Joanne Mckeon, spouse. Code status: Full code. Smoking status: Never smoker Second hand tobacco smoke exposure: No Alcohol intake: never Drinks per week: 1 Substance use: never Substance use type: does not use Do You Feel Safe in your Home?: Yes Lack of Transportation: No Lack of Food: Never True Current Housing: I Have Housing Concerned About Future Housing: No Difficulty Paying Gas/Electric Bills: No Difficulty Paying for Meds: No Currently Unemployed: No Education: Master's Degree or Higher Difficulty w/ Childcare or Family Care: No Living arrangements: with family Occupation/Education: retired Spiritual care concerns: No Agree to blood products: Yes Meds Home Medications and Allergies Home Medications Medication Instructions Recorded Confirmed Type doxazosin 4 mg tablet 4 mg PO DAILY #90 tabs 11/11/23 05/01/24 Rx tadalafil 5 mg tablet 5 mg PO DAILY #30 tabs 11/22/23 05/01/24 Rx famotidine 40 mg tablet 40 mg PO QHS #90 tabs 11/29/23
--- NOTE | 2024-05-01 13:05 | ADMGEN ---
This patient, Boom Mckeon II, was admitted to IMU Room 200-01 at 1304. Patient/family oriented to hospital policies and general routines including ID bracelet, bed and alarms, visiting hours, pain management, procedures, bathroom and other care routines, personal items, smoking policy, room service/diet, and visiting hours. Information on how to activate the Rapid Response Team has been discussed. Patient/Family are encouraged to report perceived risks to care and to ask questions if they do not understand what they are told or what they should do.
[2024-05-01 13:37] LABS: Cholesterol 165 mg/dL (0-200); HDL Direct 47 mg/dL
[2024-05-01 13:48] LABS: LDL Cholesterol Direct 105 mg/dL
[2024-05-01 14:48] LABS: Troponin I < 0.012 ng/mL (0.000-0.034)
[2024-05-01] MEDS: FAMOTIDINE 20 MG TABLET 40 MG PO (19:34)
[2024-05-02] VITALS (8 sets, daily range): BP systolic 138–145; BP diastolic 61–74; PULSE 56–81; RESP 15–18; TEMP 36.3–36.8; O2SAT 95–98
[2024-05-02 04:20] LABS: Cholesterol 161 mg/dL (0-200); HDL Direct 45 mg/dL; Triglycerides 71 mg/dL (<150)
[2024-05-02 04:31] LABS: LDL Cholesterol Direct 102 mg/dL
[2024-05-02] MEDS: DOXAZOSIN MESYLATE 4 MG TABLET PO (08:34)
[2024-05-02] MEDS: lisinopriL 20 MG TABLET PO (08:34)
[2024-05-02] MEDS: ASPIRIN 81 MG CHEWABLE TABLET PO (08:34)
[2024-05-02] MEDS: FINASTERIDE 5 MG TABLET PO (08:34)
--- NOTE | 2024-05-02 09:10 | PM.CNCAR ---
Assessment and Plan Assessment and plan (1) Chest pain: Code(s): R07.9 - Chest pain, unspecified Status: Acute Plan Acute chest pain with negative cardiac enzymes and no dynamic EKG changes. Hypertension controlled Plan Nuclear stress test however the patient has social situation and wanted to leave the hospital today and come back for outpatient stress test. Patient understands will be significant delays stress test that was done as outpatient. Patient understand he would have to come to the hospital if he has recurrent episodes of chest pain. Lisinopril 20 mg daily History of Present Illness History of Present Illness Consult date/time: 05/02/24 09:10 Reason For Visit: Chest Pain Narrative: 74-year-old male patient presents to the hospital chest pain. Patient was opening garage door manually when he felt sudden pain in left side of the chest radiating to both shoulders. Pain lasted for 30 minutes it was moderate in severity without precipitating or relieving factors. He had no prior similar episodes and no recurrent episodes. He was admitted to the hospital for evaluation under rule out ACS. His cardiac enzyme has been negative no dynamic EKG changes and no recurrent episodes overnight. Review of Systems Review of Systems: All systems reviewed & are unremarkable except as noted in HPI and below PMFSH Past Medical History Medical History (Updated 05/01/24 @ 23:26 by Natty Nair PA-C) Adenocarcinoma of prostate Under active surveillance. Benign prostatic hyperplasia Degenerative arthritis of knee, bilateral Essential (primary) hypertension GERD without esophagitis Hypertension Mixed hyperlipidemia Surgical History Surgical History History of cardiac catheterization (10/2012) No significant obstructive coronary artery disease. LVEF 40 to 45% with moderate diffuse hypokinesis. History of laparoscopic cholecystectomy Family History Family History Mother Family history of diabetes mellitus in first degree relative Father Family history of lung cancer Sibling Family history of malignant neoplasm of breast in first degree relative Malignant neoplasm of prostate Breast cancer Thyroid activity decreased Social History Social History Social History: Surrogate medical decision maker: Joanne Cange, spouse. Code status: Full code. Smoking status: Never smoker Second hand tobacco smoke exposure: No Alcohol intake: never Drinks per week: 1 Substance use: never Substance use type: does not use Do You Feel Safe in your Home?: Yes Lack of Transportation: No Lack of Food: Never True Current Housing: I Have Housing Concerned About Future Housing: No Difficulty Paying Gas/Electric Bills: No Difficulty Paying for Meds: No Currently Unemployed: No Education: Master's Degree or Higher Difficulty w/ Childcare or Family Care: No Living arrangements: with family Occupation/Education: retired Spiritual care concerns: No Agree to blood products: Yes Meds Home Medications and Allergies Home Medications Medication Instructions Recorded Confirmed Type doxazosin 4 mg tablet 4 mg PO DAILY #90 tabs 11/11/23 05/01/24 Rx tadalafil 5 mg tablet 5 mg PO DAILY #30 tabs 11/22/23 05/01/24 Rx famotidine 40 mg tablet 40 mg PO QHS #90 tabs 11/29/23 05/01/24 Rx finasteride 5 mg tablet 5 mg PO DAILY 05/01/24 05/01/24 History lisinopril 20 mg tablet 20 mg PO DAILY 05/01/24 05/01/24 History Allergies Allergy/AdvReac Type Severity Reaction Status Date / Time amoxicillin [From Augmentin] AdvReac Intermediate Nausea and Verified 05/01/24 08:19 Vomiting clavulanic acid AdvReac Intermediate Nausea and Verified 05/01/24 08:19 Vomiting rosuvastatin [From Crest
--- NOTE | 2024-05-02 10:54 | PM.DS ---
DS: Admitting Diagnosis Discharge Date 05/02/2024 Admitting Diagnosis Chest pain DS: Discharge Diagnosis Discharge Diagnosis (1) Chest pain: Code(s): R07.9 - Chest pain, unspecified Status: Acute (2) Essential hypertension: Code(s): I10 - Essential (primary) hypertension Status: Acute (3) Mixed hyperlipidemia: Code(s): E78.2 - Mixed hyperlipidemia Status: Acute (4) GERD without esophagitis: Code(s): K21.9 - Gastro-esophageal reflux disease without esophagitis Status: Acute (5) Benign prostatic hyperplasia: Code(s): N40.0 - Benign prostatic hyperplasia without lower urinary tract symptoms Status: Acute Plan The patient presented to the emergency department for evaluation left-sided chest pain while trying to push up in a manual garage door this morning as detailed in HPI. Labs, imaging, EKG, and all reports were personally reviewed. EKG showed borderline ST T-wave abnormalities in the inferior leads with a normal initial troponin. He denies that his symptoms feel like a muscle strain and are not similar to those he experiences with GERD. Troponins will be trended and cardiology has been consulted. Blood pressures were reviewed and they been reasonable. His home medications will be reviewed resumed as appropriate. Findings and treatment plan were discussed with the patient. Questions were solicited and answered to satisfaction. The patient's medical management will be taken over by the hospitalist team in a.m. DS: Summary Hospital Course Reason for hospitalization: Chest pain Hospital Course: 74 years old male was admitted complained having chest pain. Patient workup in the hospital was negative. Cardiology was consulted. Recommendation was to do stress test on Thursday but patient requested that he wants to go home and stress tests should be scheduled as an outpatient. After discussion patient will be discharged home and chest are was scheduled as an outpatient. Patient advised that if he does not feel ?he can not come back to ER. Status at Discharge Cognitive/behavioral status at discharge: Stable Time Spent with Patient Time attestation: Total time spent providing and/or coordinating discharge services: 30 minutes Exam Narrative: General: Well-developed male, nontoxic in appearance, sitting up in bed in no distress. Weight: 97.5 kg. BMI: 30.8. HEENT: PERRL, EOMI. Sclera anicteric. Oral mucosa moist. Oropharynx clear. Neck: Supple. Respiratory: Lungs are clear to auscultation bilaterally. Cardiovascular: Regular rate and rhythm with S1-S2. Chest: No tenderness to palpation over the chest wall. Gastrointestinal: Abdomen is soft, nontender, and nondistended with positive bowel sounds. No organomegaly. Skin: Warm and dry. No rash or lesions on limited exam. Extremities: No cyanosis, clubbing, or edema. Radial and pedal pulses intact. Musculoskeletal: No tenderness to palpation over the left scapula, shoulder, neck, or upper arm. Neurological: Alert. Cranial nerves 2-12 are grossly intact. No gross focal deficits to casual conversation. Psychiatric: Pleasant and cooperative with normal mood and affect. Judgment and insight intact. DS: Data Data Completed and Pending Labs on day of discharge: Labs from last 24 hours 05/02/24 05/01/24 05/01/24 03:37 14:16 11:14 Troponin I < 0.012 < 0.012 Triglycerides 71 Cholesterol 161 165 LDL Cholesterol Direct 102 105 HDL Direct 45 47 Discharge Plan Discharge Attending physician on discharge: Damian Gallego Consulting providers: Wilfrid Powell Discharging Clinician: Damian Gallego Patient Disposition: Home, Self-Care Activity: as tolerated Diet: heart healthy Patient Instructions: Chest Pain (DC), Acute Coronary Syndrome (DC), Antibiotic Form Stand Alone Forms: General Discharge Information Follow-up/Referrals: Wilfrid Powell MD [Physician] - S
--- NOTE | 2024-05-02 13:17 | ECHO_ITS ---
Patient Info Name: Boom Mckeon Age: 74 years : 1950 Gender: Male Ht: 70 in Wt: 214 lbs BSA: 2.22 m2 HR: 56 bpm BP: 139 / 74 mmHg Heart Rhythm: Sinus Rhythm Technical Quality: Fair Exam Date: 05/02/2024 9:02 AM Exam Location: Echo Lab Patient Status: Outpatient Admit Date: 05/01/2024 Staff Ordering Physician: Natty Nair PA-C Casting Sorter: Jeannette Douglas RDCS Attending Provider: Damian Gallego MD Referring Physician: Korey RUIZ; Exam Type: CA echo doppler color flow Study Info Indications - htn, hld, dx reduced EF R07.9 - Chest pain, unspecified Complete two-dimensional, color flow and Doppler transthoracic echocardiogram is performed. Summary 1. Complete two-dimensional, color flow and Doppler transthoracic echocardiogram is performed. 2. Left ventricular chamber dimension is normal. 3. Left ventricular systolic function is normal, estimated at 65-70%. 4. There is no increased left ventricular wall thickness. 5. Left ventricular septal wall motion is normal. 6. There is no aortic valve stenosis. 7. There is no aortic valve regurgitation. 8. There is no mitral valve stenosis. 9. There is no mitral valve regurgitation. 10. There is no significant tricuspid valve stenosis. 11. There is no tricuspid valve regurgitation. Left Ventricle Left ventricular chamber dimension is normal. Left ventricular systolic function is normal, estimated at 65-70%. There is no increased left ventricular wall thickness. Left ventricular septal wall motion is normal. The left ventricular diastolic function is grade I diastolic dysfunction. Right Ventricle Right ventricular chamber dimension is normal. Right ventricular systolic function is normal. Left Atria Left atrial chamber dimension is normal. Right Atria Right atrial chamber dimension is normal. Aortic Valve The aortic valve is trileaflet. There is no aortic valve sclerosis. There is no aortic valve stenosis. There is no aortic valve regurgitation. Pulmonic Valve The pulmonic valve is not well visualized. Mitral Valve The mitral valve has normal leaflets. There is no mitral valve stenosis. There is no mitral valve regurgitation. Tricuspid Valve The tricuspid valve leaflets are normal. There is no significant tricuspid valve stenosis. There is no tricuspid valve regurgitation. Pericardium/Pleural The pericardium appears normal. There is no pericardial effusion. Inferior Vena Cava Normal inferior vena cava with >50% collapse upon inspiration consistent with normal right atrial pressure, 10 mmHg. Aorta The aortic root size at the sinus of Valsalva is normal. The prox ascending aorta size is normal. Left Ventricular Outflow Tract Name Value Normal LVOT 2D LVOT Diameter 2.2 cm LVOT Doppler LVOT Peak Gradient 2 mmHg LVOT Mean Gradient 1 mmHg LVOT VTI 15 cm LVOT VTI/AV VTI Ratio 0.6 LVOT Stroke Volume 56 ml LVOT CO 4.1 l/min LVOT CI 1.8 l/min/m2 Pulmonic Valve
== END 2024-05-02 11:55 | disposition home or self-care (01) ==
LOC: ANHED 11:44 → ANHIMU 12:40
PROVIDERS: Physician Assistant; Admitting Provider Internal Medicine; Emergency Provider Emergency Medicine; PCP Family Medicine; Visit Provider Internal Medicine
DX: R07.9 Chest pain, unspecified (principal); M25.512 Pain in left shoulder; I10 Essential (primary) hypertension; E78.2 Mixed hyperlipidemia; K21.9 Gastro-esophageal reflux disease without esophagitis; Z85.46 Personal history of malignant neoplasm of prostate
CPT/HCPCS: 36415; 71046; 80053; 80061; 82465; 83690; 83718; 83721; 84484; 85025; 85055; 85610; 85730; 93005; 93306; 99285; A9270; G0378

== ENCOUNTER 2024-06-06 09:51 | Outpatient (CLI) | payer MEDICARE, SELFPAY ==
--- NOTE | 2024-06-06 10:01 | EST_ITS ---
Patient Info Name: Boom Mckeon Age: 74 years : 1950 Gender: Male Ht: 70 in Wt: 208 lbs BSA: 2.18 m2 HR: 65 bpm BP: 157 / 86 mmHg Exam Date: 06/06/2024 10:06 AM Exam Location: Echo Lab Patient Status: Outpatient Admit Date: 06/06/2024 Staff Ordering Physician: Denilson Marcelino MD Attending Provider: Denilson Marcelino MD Exercise Technologist: Jeannette Douglas [facility] Exercise Physician: Scotty Ramirez DO Exam Type: CA stress test treadmill Study Info A treadmill exercise stress test was performed. Summary 1. 1. Negative Gregorio exercise stress test for ischemic ST changes by ECG criteria. 2. 2. Good functional capacity, achieving 8.6 METs of workload. 3. 3. Baseline hypertension. 4. 4. Appropriate HR response to exercise. 5. 5. Appropriate HR recovery at 1 minute post exercise. 6. 6. No imaging with stress testing. 7. 7. Patient informed of the above results. Protocol: Gregorio Stress ECG Details Stage: REST Duration (min): 7 min : 41 sec Speed (mph): 0.0 Grade (%): 0 HR (bpm): 66 SBP (mmHg): 157 DBP (mmHg): 86 METS: --- Stage: REST Duration (min): 14 min : 17 sec Speed (mph): 0.0 Grade (%): 0 HR (bpm): 74 SBP (mmHg): 157 DBP (mmHg): 86 METS: --- Stage: STAGE 1 Duration (min): 1 min : 0 sec Speed (mph): 1.7 Grade (%): 10 HR (bpm): 88 SBP (mmHg): 157 DBP (mmHg): 86 METS: --- Stage: STAGE 1 Duration (min): 2 min : 0 sec Speed (mph): 1.7 Grade (%): 10 HR (bpm): 102 SBP (mmHg): 157 DBP (mmHg): 86 METS: --- Stage: STAGE 1 Duration (min): 3 min : 0 sec Speed (mph): 1.7 Grade (%): 10 HR (bpm): 118 SBP (mmHg): 163 DBP (mmHg): 89 METS: --- Stage: STAGE 2 Duration (min): 1 min : 0 sec Speed (mph): 2.5 Grade (%): 12 HR (bpm): 117 SBP (mmHg): 163 DBP (mmHg): 89 METS: --- Stage: STAGE 2 Duration (min): 2 min : 0 sec Speed (mph): 2.5 Grade (%): 12 HR (bpm): 122 SBP (mmHg): 200 DBP (mmHg): 83 METS: --- Stage: STAGE 2 Duration (min): 3 min : 0 sec Speed (mph): 2.5 Grade (%): 12 HR (bpm): 127 SBP (mmHg): 200 DBP (mmHg): 83 METS: --- Stage: STAGE 3 Duration (min): 0 min : 50 sec Speed (mph): 3.4 Grade (%): 14 HR (bpm): 137 SBP (mmHg): 200 DBP (mmHg): 83 METS: --- Stage: RECOVERY Duration (min): 0 min : 9 sec Speed (mph): 1.5 Grade (%): 0 HR (bpm): 139 SBP (mmHg): 172 DBP (mmHg): 83 METS: --- Stage: RECOVERY Duration (min): 1 min : 9 sec Speed (mph): 0.0 Grade (%): 0 HR (bpm): 107 SBP (mmHg): 172 DBP (mmHg): 83 METS: --- Stage: RECOVERY Duration (min): 2 min : 9 sec Speed (mph): 0.0 Grade (%): 0 HR (bpm): 91 SBP (mmHg): 172 DBP (mmHg): 83 METS: --- Stage: RECOVERY Duration (min): 3 min : 9 sec Speed (mph): 0.0 Grade (%): 0 HR (bpm): 80 SBP (mmHg): 193 DBP (mmHg): 83 METS: ---
== END 2024-06-06 09:52 | disposition home or self-care (01) ==
PROVIDERS: PCP Family Medicine; Visit Provider Family Medicine
DX: R07.2 Precordial pain (principal)
CPT/HCPCS: 93017